=== PATIENT | female | born 1995 | race Two or more races ===

== ENCOUNTER 2020-12-10 20:26 | Emergency (ER) | payer OTHER ==
[~2020-12-10] VITALS: Ht 157.5 cm; Wt 72.2 kg
[2020-12-10 20:28] VITALS: BP 160/74
--- NOTE | 2020-12-10 22:28 | NUR ---
ERP in to evaluate pt now.
[2020-12-10] MEDS ORDERED: IBUPROFEN 600 MG TABLET ONE (22:36)
--- NOTE | 2020-12-10 22:41 | NUR ---
Pt in rigid collar waiting for xray, medicated with po motrin. AIDET provided.
[2020-12-10] MEDS ORDERED: IBUPROFEN 600 MG TABLET PO ONE (23:00)
--- NOTE | 2020-12-10 23:26 | NUR ---
Back from CT, waiting for ERP re-evaluation.
== END 2020-12-11 00:26 | disposition home or self-care (01) ==
LOC: ED 12-11 00:19
DX: S39.012A Strain of muscle, fascia and tendon of lower back, initial encounter (principal); S16.1XXA Strain of muscle, fascia and tendon at neck level, initial encounter; Z90.49 Acquired absence of other specified parts of digestive tract; V49.49XA Driver injured in collision with other motor vehicles in traffic accident, initial encounter; Y93.89 Activity, other specified; Y92.410 Unspecified street and highway as the place of occurrence of the external cause; Y99.8 Other external cause status
CPT/HCPCS: 72110; 72125; 99284